=== PATIENT | female | born 1970 | race African-American/Black ===

== ENCOUNTER 2016-08-18 20:27 | Emergency (ER) | payer OTHER ==
--- NOTE | ~2016-08-18 | US85 ---
[facility] A Service of [facility] RADIOLOGY TEXT RESULTS PATIENT: JOSEE BALLARD LOCATION: SED : 66 UNIT #: [id number] AGE: [address]: Dedra Nava SEX: F ORDER DR: [id number] [address] [address] [id number] E MR#: [id number] Acc #: [id number] NAME: JOSEE BALLARD : 1970 SEX: F STUDY DATE/TIME: 08/18/2016 21:59 UNIT: SED ROOM: STUDY DESCRIPTION: [place] [facility] Attending Physician: Dedra Nava Pa-C Ordering Physician: Physician Non-Staff Primary Care Physician: Angelique Babcock M.D. MEDICAL IMAGING REPORT This report is preliminary unless electronic signature is present. EXAM Right lower extremity duplex Doppler venous ultrasound COMPARISON None INDICATIONS 46-year-old female with right calf pain for 4 days. No known trauma. FINDINGS Right common femoral, proximal greater saphenous, proximal deep femoral and proximal superficial femoral as well as the distal superficial femoral veins are fully compressible with normal internal color-flow and waveform. The mid superficial femoral vein as well as the popliteal vein are not well seen on zepeda-scale imaging although they do demonstrate internal color flow. Internal color flow is demonstrated in the anterior tibial, posterior tibial and peroneal veins. IMPRESSION No evidence of deep venous thrombosis is seen on this exam. However, perhaps due to patient body habitus the mid aspect of the superficial femoral vein and the popliteal vein both are not well seen on zepeda-scale imaging. These do demonstrate internal color flow and this excludes an occlusive thrombosis in these segments but nonocclusive thrombus cannot entirely be excluded. Similarly the anterior tibial, posterior tibial and peroneal veins are not well seen on zepeda-scale imaging but demonstrate internal color flow. Dictated by... Oliver Best M.D. [facility] A Service of [facility] RADIOLOGY TEXT RESULTS PATIENT: JOSEE BALLARD LOCATION: SED : 66 UNIT #: [id number] AGE: [address]: Dedra Nava SEX: F ORDER DR: THIS IS AN ELECTRONICALLY VERIFIED REPORT Oliver Best M.D. at 08/21/2016 7:20 AM [place] TD: 08/19/2016 07:35 JOB #: [id number] MEDICAL IMAGING REPORT
[~2016-08-18 20:27] MED LIST: ACETAMINOPHEN PR; DARVOCET-N 1001 TA1 PO; ESTRACE PO; FIORINAL CAPSUL1 CAP PO; FLEXERIL10 MG PO; FLOMAX0.4 M1 PO; HYDROCODON-ACE1 EACH PO; IMITREX PO; LORTAB 7.5-5001 TAB PO; MAXALT5 MG PO; PHENERGAN25 MG PO; PREMARIN PO; VICODIN 5/500 T1 TAB PO; [UNRECOGNIZED DRUG - REMARK]
== END 2016-08-18 23:52 | disposition home or self-care (01) ==
LOC: SED 20:27
DX: M79.604 Pain in right leg (principal); G43.909 Migraine, unspecified, not intractable, without status migrainosus; Z90.710 Acquired absence of both cervix and uterus; Z88.2 Allergy status to sulfonamides
CPT/HCPCS: 36415; 93971; 96374; 99284; J1885